=== PATIENT | male | born 1975 | race Caucasian/White ===

== ENCOUNTER 2017-11-16 01:56 | Inpatient (IN) | payer OTHER ==
[~2017-11-16] VITALS: Ht 203.2 cm; Wt 145.6 kg
[~2017-11-16 01:56] MED LIST: ALTACE10 M2 PO; CALCIUM 500 +1 EAC5 PO; FLOMAX0.4 M1 PO; METOPROLOL TART25 M1 PO; PROTONIX40 M3 PO
--- NOTE | 2017-11-16 14:50 | Operative Report ---
Operative/Inv Procedure Report Surgery Date: 11/16/17 Name of Procedure: Total thyroidectomy with Nims monitor Pre-Operative Diagnosis: Papillary carcinoma of the thyroid, right lobe Post-Operative Diagnosis: Same Estimated Blood Loss: less than 50ml Surgeon/Director [employer]: Loree Amador MD Student Anesthesia: general endotracheal tube (w/ NIMS monitor) Monitors: NIMS monitor Drains: JOSE 2 Specimens: 1. Total Thyroid , stitch superior pole, right lobe 2. Gregg ligament, right 3. Gregg ligament, left Microbiology: none Complications: none Condition: Stable on leaving the OR Operative Indication: Right thyroid nodule with US FNA positive for papillary carcinoma of the thyroid Operative/Procedure Note Note: The patient was brought to the operating room. Patient was placed on the operating room table in supine position. At first timeout was performed including patient's identification and the surgical procedure to be performed. Then general orotracheal anesthesia was induced. NIMS tube was inserted with direct visualization with the glida scope. Electrodes were placed directly over the vocal cords. NIMS tube was secured in place with tape. The grounding electrodes were then inserted into the sternum area and all electrodes were connected to the NIMS monitor. NIMS monitor was set on thyroidectomy mode. Gentle top of the patient's lower neck in para laryngeal and tracheal region yielded a nerve action potential which was visualized on the monitor. Action potential visualized on both sides which confirmed proper positioning of the NIMS tube. Neck was slightly hyperextended. The proposed incision was previously marked in a short-term surgery with patient sitting upright. Surgical table was left in place with head toward anesthesia. Neck was prepped and draped in the routine manner and surgery was performed. A horizontal incision was placed in a skin crease manner over the lower neck as previously marked. The incision was then crosshatched for skin approximation at the end of the surgery. The incision was carried with a 15 blade through the skin and subcutaneous tissue. Platysma was identified and transected next. The superior skin flap was then elevated in subplatysmal manner. Then the inferior skin flap was elevated in subplatysmal manner. Both skin flaps were then retracted by application stay sutures with 2-0 silk. Care was taken to preserve the subplatysmal venous plexus which was quite extensive. Strap muscles were identified in the midline and . Sternal notch, trachea, cricoid ring and larynx were palpated. Dissection was carried in the midline over upper trachea until the thyroid isthmus was identified. Strap muscles on the right were then retracted laterally and attention was paid to the inferior thyroid lobe. All venous and arterial supply was then carefully dissected. It was bipolared, with gem bipolar forceps, as well as clamped, and tied. The inferior parathyroid gland was not clearly visualized. However, the dissection was carried directly on the thyroid capsule which preserved the inferior parathyroid gland. Next, blunt dissection was used to dissect overlying soft tissue over the anterior surface of the gland. The gland was quite large and had significant venous plexus all over. Thyroid nodules palpable within the right lobe were pole. Inferior lateral dissection was carried next. Venous supply was dissected away from the gland and the clamped cut and tied. The superior parathyroid gland was identified on the undersurface of the gland. Parathyroid gland was gently elevated and from the thyroid tissue and left intact. Superiorly, dissection was carried from the thyroid isthmus over the anterior superior surface of the gland. The vascular supply was gently dissected and bipolared with gem forceps . Superior vascular pedicle including artery and vein were identified. They were clamped cut and tied. The gland was then gently rotated out of its bed. The lobe was then rotated out of the neck and further dissection was carried on the undersurface of the gland. Recurrent laryngeal nerve was never fully identified. Attempt at stimulating it with Nims probe was also not successful. Gregg ligament was bluntly dissected and thyroid was freed from its soft attachments to the trachea. At this point the isthmus was dissected and then freed from the trachea. Next left thyroidectomy was carried. Strap muscles on the left were then retracted laterally and attention was paid to the inferior thyroid lobe. All venous and arterial supply was then carefully dissected. It was bipolared, with gem bipolar forceps, as well as clamped, and tied. The inferior parathyroid gland was not clearly visualized. However, the dissection was carried directly on the thyroid capsule which preserved the inferior parathyroid gland. Next, blunt dissection was used to dissect overlying soft tissue over the anterior surface of the gland. The gland was quite large and had significant venous plexus all over. Thyroid nodules palpable within the right lobe were pole. Inferior lateral dissection was carried next. Venous supply was dissected away from the gland and the clamped cut and tied. The superior parathyroid gland was identified on the undersurface of the gland. Parathyroid gland was gently elevated and from the thyroid tissue and left intact. Superiorly, dissection was carried from the thyroid isthmus over the anterior superior surface of the gland. The vascular supply was gently dissected and bipolared with gem forceps . Superior vascular pedicle including artery and vein were identified. They were clamped cut and tied. The gland was then gently rotated out of its bed. The lobe was then rotated out of the neck and further dissection was carried on the undersurface of the gland. Recurrent laryngeal nerve was never fully identified. Attempt at stimulating it with Nims probe was also not successful. Gregg ligament was bluntly dissected and thyroid was freed from its soft attachments to the trachea. At this point the thyroid was completely freed from its surrounding tissue and tracheal and removed. Additional residual thyroid tissue in the region of Gregg ligament was teased out of with a clamp and sent to pathology separately. Once the thyroid gland was fully removed inspection was carried taking central neck. There was no evidence of adenopathy on both sides, therefore central neck dissection was not carried. Surgical bed was copiously irrigated. Surgeons changed gloves and applied fresh towels around the wound. Additional irrigation was then carried. The wound was carefully inspected for bleeders. There was small amount of bleeding in the region of recurrent laryngeal nerve. Pressure application with surgical sponges was carried for a period of 5 minutes with resultant resolution of the bleeding. Valsalva was applied. There was no air leak and no additional bleeding. Helotene powder was placed into the thyroid bed for hemostasis. Two #10 Fijian suction drains were inserted into the wound for drainage each exiting on each end of the wound. They were stitched 2-0 silk. Closure was then carried at first strap muscles with 4-0 Vicryl simple sutures. Then platysma with 4-0 Vicryl inverting sutures. Then skin was approximated with subcuticular horizontal running stitch with 5-0 Monocryl. Dermabond was applied to the incision followed by Steri-Strips. Pressure dressing was placed with fluffs and wraparound four-inch Randi gauze. Patient was then reawakened, recurrent laryngeal nerve was monitored during extubation. There was normal action potential on both sides. Patient was then extubated and taken to the recovery room in good condition. There were no complications. Estimated blood loss was 30 mL. Findings: 2 cm thyroid nodule within the right lower lobe completely encased by surrounding tissue Discharge Disposition: PACU
[2017-11-16] MEDS ORDERED: CYTOMEL25 MC1 PO (15:00)
--- NOTE | 2017-11-16 15:00 | Admission Core Measures ---
Acute Coronary Syndrome (CM) ACS Core Measures Acute Coronary Syndrome Diagnosis No Congestive Heart Failure (NEW) CHF Core Measures Congestive Heart Failure Diagnosis No Cerebrovascular Accident CVA Core Measures CVA/TIA Diagnosis No Venous Thromboembolism VTE Core Flor (View Protocol) VTE Risk Factors Surgery No Mechanical VTE Prophylaxis d/t N/A MechProphylax Ordered No VTE Pharm Prophylaxis d/t NA PharmProphylax ordered Problem List As ranked by this Provider includes Assessment & Plan 1. S/P total thyroidectomy HOME MEDS Home Med List Calcium Carbonate/Vitamin D3 (Calcium 500 + D Tablet) (Unknown Strength) TABLET 1 TAB PO DAILY SUPPLEMENT (Reported) Metoprolol Tartrate 25 MG TABLET 1 TAB PO BID HEART/BP (Reported) Pantoprazole Sodium (Protonix) 40 MG TABLET.DR 1 TAB PO DAILY AC GI (Reported ) Ramipril (Altace) 10 MG CAPSULE 1 CAP PO QAM BP (Reported) Tamsulosin HCl (Flomax) 0.4 MG CAP.ER.24H 1 CAP PO QHS (Reported)
--- NOTE | 2017-11-16 15:02 | Patient Discharge Instructions ---
Discharge Instructions General Discharge Information You were seen/treated for: Thyroid cancer You had these procedures: total thyroidectomy Watch for these problems: Temp>101, increased redness or drainage of wounds Other wound care: Keep incision clean and dry. No bathing or soaking. May shower. Diet Continue normal diet: Yes Activity Activity Self Limited: Yes Acute Coronary Syndrome Inclusion Criteria At DC or during hospital stay patient has or had the following: Discharge Core Measures Meds if any: Prescribed or Continued at Discharge Meds if any: NOT Prescribed or Continued at Discharge Congestive Heart Failure Inclusion Criteria At DC or during hospital stay patient has or had the following: Discharge Core Measures Meds if any: Prescribed or Continued at Discharge Meds if any: NOT Prescribed or Continued at Discharge Cerebrovascular accident Inclusion Criteria At DC or during hospital stay patient has or had the following: CVA/TIA Diagnosis No Discharge Core Measures Meds if any: Prescribed or Continued at Discharge Meds if any: NOT Prescribed or Continued at Discharge Venous thromboembolism Discharge Core Measures - Per Current guidelines, there needs to be overlap - treatment for the first 5 days of Warfarin therapy. - If discharged on Warfarin prior to 5 days of - overlap therapy, the patient will need to be - assessed for post discharge needs including - *Post discharge parental anticoagulation - *Warfarin and/or parental anticoagulation education - *Follow up date to check INR post discharge Meds if any: Prescribed or Continued at Discharge Note: Overlap Therapy is Warfarin and Anticoagulant Meds if any: NOT Prescribed or Continued at Discharge
--- NOTE | 2017-11-16 15:06 | Surg Short-stay <48hrs Dis Sum ---
Visit Information Visit Dates Admission Date: 11/16/17 Discharge Date: 11/17/17 Surgical Short Stay DC Summary Admission Diagnosis: Thyroid cancer Final Diagnosis: same, s/p total thyroidectomy Procedure(s): Total thyroidectomy - see operative report Summary/Significant Findings: Pt underwent a total thyroidectomy by Dr Amador and was brought to the recovery room in stable condition. He was brought to the ICU for overnight monitoring post op. He was able to tolerate liquids immediately post op and advanced to regular food. His voice was strong post op. He had no difficulty breathing. He was cleared for discharge. Follow up instructions given. Condition at Discharge: good Discharge Disposition: home or self care Discharge instructions provided to patient/family: Yes Post discharge follow-up plan: Dr Amador within two weeks
[2017-11-16] MEDS ORDERED: OS-CAL 500+D31 EAC1 PO (15:09)
[2017-11-16 16:00] VITALS: BP 130/70
--- NOTE | 2017-11-16 17:29 | PN- Ear, Nose & Throat ---
Subjective Subjective: Post op check Awake, alert No specific complaints Tolerating clear liquids without any difficulty swallowing No difficulty breathing Denies any palpitation/chest pain Pain is tolerable - requesting IV tylenol Objective Vital Signs and I&Os Vital Signs Date Time Temp Pulse Resp B/P B/P Pulse O2 O2 Flow FiO2 Mean Ox Delivery Rate 11/16 1701 96 Nasal 2.0L Cannula RR 16 Sat 98% 2LNC BP 136/64 HR 86 - frequent PVC's on the monitor Physical Exam: JOSE drains - scant serosang in both General: alert and oriented times three ENT: no facial droop, no slurring, tongue protrudes in midline, strength equal and symmetrical, no hoarseness Chest: clear anteriorly bilaterally, regular rate - frequent skipped beat - no murmurs/rubs Abd: soft, good bs Ext: warm, trace edema BUE, no calf tenderness, ALPS in place Wd: dressing clean and dry Current Medications: Current Medications Sig/Bakari Start time Last Medication Dose Route Stop Time Status Admin Acetaminophen 1,000 MG Q6H 11/16 1730 UNVr N/A 1 UNIT IV 11/17 1144 Calcium/Vitamin D 500 MG BID 11/16 2100 CAN PO Calcium/Vitamin D 500 MG BID 11/16 2100 AC PO Cefazolin Sodium 2,000 MG ONCE 11/16 0000 NR IV 11/16 2359 Fentanyl Citrate 100 MCG .STK-MED ONE 11/16 916 DC IM 11/16 917 Fentanyl Citrate 100 MCG .STK-MED ONE 11/17 835 DC IM 11/16 08 Fentanyl Citrate 100 MCG .STK-MED ONE 11/16 06 DC IM 11/16 0654 Hydromorphone HCl 2 MG .STK-MED ONE 11/16 0835 DC IM 11/16 0836 Lisinopril 20 MG DAILY 11/17 09 AC PO Metoprolol Tartrate 25 MG BID 11/16 2099 AC PO Midazolam HCl 2 MG .STK-MED ONE 11/16 0654 DC IM 11/16 0655 Omeprazole 40 MG DAILY AC 11/17 07 AC PO Remifentanil 3 MG .STK-MED ONE 11/16 09 DC IV 11/16 0918 Remifentanil 2 MG .STK-MED ONE 11/16 0653 DC IV 11/16 0654 Tamsulosin HCl 0.4 MG AT BEDTIME 08/02 2100 AC PO Results Last 48 Hours of Labs: Laboratory Tests 11/16 1505 Chemistry Sodium (137 - 145 mmol/L) 137 Potassium (3.5 - 5.1 mmol/L) 5.0 Chloride (98 - 107 mmol/L) 104 Carbon Dioxide (22 - 30 mmol/L) 24 Anion Gap (5 - 16) 9 BUN (9 - 20 mg/dL) 19 Creatinine (0.7 - 1.2 mg/dL) 1.0 Estimated GFR (>60 ml/min) > 60 BUN/Creatinine Ratio (7 - 25 %) 19.0 Calcium (8.4 - 10.2 mg/dL) 9.4 Magnesium (1.6 - 2.3 mg/dL) 1.8 Recent Imaging Studies: EKG post op - frequent PVC's, no evidence of [place] Assessment/Plan Assessment/Plan 42yo male s/p total thyroidectomy for thyroid cancer tolerating liquids - advance diet to regular pain management - IV tylenol, narcotics for breakthrough calcium/vitamin D bid cytomel daily beginning tomorrow - pt has script already at home Post op PVC's BEP/mag/calcium/CBC all wnl EKG without signs of [place] discussed with patient - this is a known, chronic issue and he has been worked up by Dr Morrissey of cardiology including cardiac cath. Asymptomatic. Dr Morrissey aware of pts surgery, left message with Dr Amador follow up labs in am Core Measures Venous Thromboembolism VTE Risk Factors Surgery No Mechanical VTE Prophylaxis d/t N/A MechProphylax Ordered No VTE Pharm Prophylaxis d/t NA PharmProphylax ordered
[2017-11-16 20:00] VITALS: BP 143/80
[2017-11-17] VITALS: BP 120/80
[2017-11-17 04:00] VITALS: BP 128/84
--- NOTE | 2017-11-17 05:56 | PN- General Surgery ---
Subjective Subjective: Patient awake -little sleep last night but feels well uneventful night hungry this am Review of Systems Constitutional: Denies: chills, fever, weakness. EENTM: Denies: throat pain. Cardiovascular: Reports: palpitations. Denies: edema. Respiratory: Denies: cough, short of breath. Gastrointestinal: Denies: abdominal pain, nausea, vomiting. Objective Vital Signs and I&Os Vital Signs Date Time Temp Pulse Resp B/P B/P Pulse O2 O2 Flow FiO2 Mean Ox Delivery Rate 11/17 97.4 68 20 120/80 98 Nasal 3.0L Cannula 11/17 98 Nasal 3.0L Cannula 11/16 2121 66 20 138/72 11/16 2121 62 20 138/72 11/17 1999 97 Nasal 2.0L Cannula 11/17 1999 96.9 55 18 143/80 97 Nasal 2.0L Cannula 11/16 1904 4.0 11/16 1701 96 Nasal 2.0L Cannula 11/16 1600 98.0 80 20 130/70 98 Nasal 2.0L Cannula Intake & Output 11/17 0811/17 0000 11/16 1600 11/16 0800 11/16 0000 11/15 1600 Intake Total 877 Output Total 960 Balance -83 Intake, IV 377 Intake, Oral 500 Output, 10 Drainage Output, Urine 950 Patient 321 lb Weight Physical Exam: VSS afebrile drain 1 with fluid that escaped from skin edge -nothing in drain drain 2 10cc serosang neck dressings with scant drainage chest- CTA symmetric Heart with - Reg rate with frequent stable PVC- assymtomatic abd -soft nontender bilateral lower extremities ssoft Physical Exam General Appearance: well developed/nourished, no apparent distress, alert, awake Current Medications: Current Medications Sig/Bakari Start time Last Medication Dose Route Stop Time Status Admin Acetaminophen 650 MG Q4P PRN 11/16 1815 AC PO Acetaminophen 1,000 MG Q6H 11/16 1730 AC 11/17 N/A 1 UNIT IV 11/17 1144 0538 Calcium/Vitamin D 500 MG BID 11/16 2100 CAN PO Calcium/Vitamin D 500 MG BID 11/16 2100 AC 11/16 PO 2122 Cefazolin Sodium 2 GM Q8H 11/16 2000 DC 11/17 N/A 1 UNIT IV 11/17 0429 0407 Cefazolin Sodium 2,000 MG ONCE 11/16 0000 DC IV 11/16 2359 Fentanyl Citrate 100 MCG .STK-MED ONE 11/16 0917 DC IM 11/16 0918 Fentanyl Citrate 100 MCG .STK-MED ONE 11/16 0836 DC IM 11/16 0837 Fentanyl Citrate 100 MCG .STK-MED ONE 11/16 0653 DC IM 11/16 0654 Heparin Sodium 5,000 UNIT Q8 11/16 2200 AC 11/16 (Porcine) SC 2136 Hydromorphone HCl 2 MG .STK-MED ONE 11/16 0835 DC IM 11/16 0836 Liothyronine Sodium 25 MCG DAILY 11/17 09 CAN PO Liothyronine Sodium 25 MCG DAILY 11/17 09 AC PO Lisinopril 20 MG DAILY 11/17 09 AC PO Metoprolol Tartrate 25 MG BID 11/16 2100 AC 11/16 PO 212 Midazolam HCl 2 MG .STK-MED ONE 11/16 0654 DC IM 11/16 0655 Morphine Sulfate 2 MG Q3P PRN 11/16 1815 AC IV Omeprazole 40 MG DAILY AC 11/17 0700 AC PO Ondansetron HCl 4 MG Q6P PRN 11/16 1815 AC IV Oxycodone/ 1 TAB Q4P PRN 11/16 1815 AC Acetaminophen PO Oxycodone/ 2 TAB Q4P PRN 11/16 1815 AC Acetaminophen PO Remifentanil 5 MG .STK-MED ONE 11/16 1051 DC IV 11/16 1052 Remifentanil 3 MG .STK-MED ONE 11/16 0917 DC IV 11/16 0918 Remifentanil 2 MG .STK-MED ONE 11/16 0653 DC IV 11/16 0654 Sodium Chloride 1,000 ML Q13H 11/16 1815 AC 11/16 IV 1905 Tamsulosin HCl 0.4 MG AT BEDTIME 11/16 2100 AC 11/16 PO 2122 Results Last 48 Hours of Labs: Laboratory Tests 11/16 1505 Chemistry Sodium (137 - 145 mmol/L) 137 Potassium (3.5 - 5.1 mmol/L) 5.0 Chloride (98 - 107 mmol/L) 104 Carbon Dioxide (22 - 30 mmol/L) 24 Anion Gap (5 - 16) 9 BUN (9 - 20 mg/dL) 19 Creatinine (0.7 - 1.2 mg/dL) 1.0 Estimated GFR (>60 ml/min) > 60 BUN/Creatinine Ratio (7 - 25 %) 19.0 Calcium (8.4 - 10.2 mg/dL) 9.4 Magnesium (1.6 - 2.3 mg/dL) 1.8 Assessment/Plan Assessment/Plan 42yo male POD 1 s/p total thyroidectomy for thyroid cancer tolerating liquids - advance diet to regular pain management - IV tylenol, narcotics for breakthrough CA level 9.4 on supplementation cytomel daily beginning tomorrow - pt has script already at home 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 Asymptomatic. Dr Morrissey aware of pts surgery, discussed with Dr. Amador Core Measures Venous Thromboembolism VTE Risk Factors Surgery No Mechanical VTE Prophylaxis d/t N/A MechProphylax Ordered No VTE Pharm Prophylaxis d/t NA PharmProphylax ordered
[2017-11-17 08:00] VITALS: BP 124/76
[2017-11-17 10:16] VITALS: BP 140/79
--- NOTE | 2017-11-17 12:26 | Cons- Cardiology ---
General Information and HPI Consulting Request Date of Consult: 11/16/17 Requested By: Loree Amador MD History of Present Illness: Mehul is a 42 year old male with history of testicular cancer s/p left orchiectomy many years ago. He also had lymphoma. Recently, he was also found to have thyroid cancer and he underwent surgical resection of his thyroid tumor on this admission. Post procedure the patient is noted to have multiple asymptomatic unifocal PVC's. He otherwise feels well without chest pain, pressure, tightness, shortness of breath or lightheadedness. To review his prior history, over the past six months this patient has noted a marked decrease in his exercise tolerance due to exertional shortness of breath. He can do very little without becoming winded. In addition, he has orthopnea. Over the same period of time Mehul has noted a chest discomfort that was atypical for cardiac pain. It was a sharp and sometimes severe discomfort of the left chest that can last for minutes at a time. There was no exertional compenent to this pain and it was non-radiating. There was no association with nausea, vomiting, diaphoresis, breathing or eating. He denied lightheadedness but did have occasional palpitations. Finally, it should be noted that this patient reported a severe enlargement of his right testicle along with painless hematuria at the time of his last office visit. It is now thought to be related to epididimitis however this is to be reviewed by his cancer doctors. A new thyroid nodule was also found which appeared to be a papillary thyroid carcinoma which he was now admitted for. A cardiac catheterization showed patent coronaries but confirmed a mildly decreased EF. Workup for the above included a stress test showing inferoseptal ischemia with decreased EF of 41% but an exercise tolerance of over 10 minutes. Our echocardiogram showed a decreased EF of 45-50% with moderate left atrial enlargement and trace MR. This patient works for [employer] in [employer] which is where he has undergone a workup for the above. It has included pulmonary function tests that are in the normal range and a normal stress echo. There is impaired LV relaxation on his echo but no evidence of ischemia. Allergies/Medications Allergies: Coded Allergies: etoposide (Severe, ANAPHYLAXIS 11/15/17) PER PRE-OP ORDER SHEET FROM [facility]. - 11/15/17 naproxen (Severe, ANAPHYLAXIS 11/15/17) PER PRE-OP ORDER SHEET FROM [facility]. -CG 11/15/17 NSAIDS (Non-Steroidal Anti-Inflamma (PER PT WAS TOLD NOT TO TAKE BY 11/15/17) Home Med List: Calcium Carbonate/Vitamin D3 (Os-Tam 500+D3 Caplet) 500 MG-200 TABLET 1 TAB PO BID supplement (Reported) Liothyronine Sodium (Cytomel) 25 MCG TABLET 1 TAB PO DAILY HYPOTHYROIDISM Metoprolol Tartrate 25 MG TABLET 1 TAB PO BID HEART/BP (Reported) Pantoprazole Sodium (Protonix) 40 MG TABLET.DR 1 TAB PO DAILY AC GI (Reported ) Ramipril (Altace) 10 MG CAPSULE 1 CAP PO QAM BP (Reported) Tamsulosin HCl (Flomax) 0.4 MG CAP.ER.24H 1 CAP PO QHS (Reported) Review of Systems Review of Systems: A review of systems is unremarkable. 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 Home Smoking Status: Never Smoked Exam & Diagnostic Data Vital Signs and I&O Vital Signs Date Time Temp Pulse Resp B/P B/P Pulse O2 O2 Flow FiO2 Mean Ox Delivery Rate 11/17 1016 84 140/79 11/17 1015 78 140/79 / 0800 Room Air 11/17 0800 97.7 64 20 124/76 99 Room Air 11/17 0400 96.7 48 18 128/84 96 Nasal 3.0L Cannula 11/17 0400 96 Nasal 3.0L Cannula 11/17 0000 97.4 68 20 120/80 98 Nasal 3.0L Cannula 11/17 0000 98 Nasal 3.0L Cannula 11/162 66 20 138/72 11/16 2121 62 20 138/72 11/17 1999 97 Nasal 2.0L Cannula 11/17 1999 96.9 55 18 143/80 97 Nasal 2.0L Cannula 11/16 1904 4.0 11/16 1701 96 Nasal 2.0L Cannula 11/16 1600 98.0 80 20 130/70 98 Nasal 2.0L Cannula Intake & Output 11/17 0800 11/17 0000 11/16 1600 11/16 0800 11/16 0000 Intake Total 840 877 Output Total 855 960 Balance -15 Intake, IV 600 377 Intake, Oral 240 500 Output, 5 10 Drainage Output, Urine 850 950 Patient 321 lb Weight Physical Exam: General: WD/WN male in NAD; alert and oriented x 3 HEENT: NC/AT, PERRL, EOMI Heart: RRR w/o murmur, +ve ectopy Lungs: clear bilaterally Abdomen: soft, NT, +ve bowel sounds Extremities: no edema Assessment/Plan Assessment/Plan * This patient has shortness of breath with minimal exertion that may be related to uncontrolled hypertension but I am concerned about the possibility of malignancy. He now has evidence of a papillary thyroid carcinoma and his chest CT showed multiple small nodules that were characterized as granulomas verses malignancy. We will obtain pulmonary function tests as an outpatient. I think his exercise intolerance is multifactorial and due to a combination of mildly decreased EF, possibly related to prior chemotherapy, hypertension and possible lung disease. Nevertheless, his exercise tolerance is reasonable at ten minutes of exercise on a treadmill stress test. I do not see evidence of decompensated CHF at this time. * This patient had hypertension with multiple PVC's although his blood pressure appears better today. He does have impaired LV relaxation on his echocardiogram and may well lead to exercise intolerance and shortness of breath. In addition, his PVC's may be related to subendocardial ischemia from hypertensive heart disease. We added Metoprolol 25mg BID which has helped and he should also be on an ACEI to maintain a well controlled blood pressure. His PVC's are not new and in the setting of a near normal EF are unlikely to be a cause of sustained ventricular tachycardia. I think he is safe for discharge from a cardiac standpoint on the above medications. Consult Acknowledgment - Thank you for your consult request.
== END 2017-11-17 14:40 | DRG 627 ==
LOC: STS 01:56 → PACUH 10:09 → ENRESERV 15:28 → ENTRNSPT 16:15 → EDTRNSPTSTS 16:32 → CMPTRNSPT 16:47 → CRI 16:54
PROC: 4A11X4G Monitoring of Peripheral Nervous Electrical Activity, Intraoperative, External Approach (ICD-10-PCS; principal; 2017-11-16)
PROC: 0GTH0ZZ Resection of Right Thyroid Gland Lobe, Open Approach (ICD-10-PCS; principal; 2017-11-16)
DX: C73 Malignant neoplasm of thyroid gland (principal); I49.3 Ventricular premature depolarization; I10 Essential (primary) hypertension; I25.10 Atherosclerotic heart disease of native coronary artery without angina pectoris; Z85.47 Personal history of malignant neoplasm of testis; Z85.72 Personal history of non-Hodgkin lymphomas; Z88.8 Allergy status to other drugs, medicaments and biological substances; Z90.79 Acquired absence of other genital organ(s)
CPT/HCPCS: CCU; 36415; 82436; 93005; 93010; J0131; J0690; J1644; J2405; J3490

== ENCOUNTER 2017-12-28 02:02 | Observation (INO) | payer OTHER ==
[~2017-12-28] VITALS: Ht 203.2 cm; Wt 146.1 kg
[~2017-12-28 02:02] MED LIST changes: +CYTOMEL25 MC1 PO; +OS-CAL 500+D31 EAC1 PO
[2017-12-28] MEDS ORDERED: LEVOTHYROXINE137 MCG PO (06:36)
[2017-12-28] MEDS ORDERED: BREO ELLIPTA 21 EACH PO (06:36)
[2017-12-28] MEDS ORDERED: FLOMAX0.4 M1 PO (06:37)
[2017-12-28 12:50] VITALS: BP 122/80
--- NOTE | 2017-12-28 14:01 | PN- Student ---
Natasha kaba 12/28/17 1347: Subjective Subjective: Pt reports feeling well after surgery. He is in minimal pain at this time. He has ambulated and urinated without issue. He tolerated a clear liquid diet and reports being hungry. Has had no nausea or vomiting post-operatively. No CP, SOB , difficulty breathing, MACIAS, dizziness, numbness or tingling in his extremities. Objective Objective: Vitals: See EMR General: Middle aged man, sitting up in chair, pleasant, comfortable, NAD. Dressing clean, dry and intact over the neck with drain in place and small amount of bloody drainage noted. Cardio: S1 and S2. Regular rate and rhythm. No murmurs rubs or gallops. Pulm: Breath sounds auscultated. No wheezes, rhonchi or rales. Abdomen: Hyperactive bowel sounds. Soft, non-distended, non-tender to palpation. Extremities: ALPs in place on lower extremities. Calves are soft and non-tender. Gross motor and sensation intact and equal in bilateral upper and lower extremities. Assessment/Plan Assessment: 42 year old male POD #0 s/p excisional biopsy of a left cervical lymph node. PMH includes thyroid cancer s/p total thyroidectomy and BPH. Pt tolerated the procedure well and his post-operative pain is well controlled at this time. Plan: Continue antibiotics until drain is removed. Monitor drain output and remove when output is minimal. On clear liquid diet, will advance as tolerated. Continue IVF. Hep SubQ and ALPs for DVT ppx. Encourage ambulation. Encourage incentive spirometry use. Continue home medications. Discuss with Dr Amador and surgical PAs. Cortes Cage 12/28/17 8946: Resident Review Statement Resident Statement: amended to note Other Findings: agree w above pt comfortable, minimal pain. JOSE drain with minimal s/s output, holding self suction. dressing dci minimal neck swelling. tolerating regular diet. cont 23hr observation to monitior for neck swelling/obstructive symptoms and pain control. likely dc in am abx until drain out.
--- NOTE | 2017-12-28 15:19 | Admission Core Measures ---
Acute Coronary Syndrome (CM) ACS Core Measures Acute Coronary Syndrome Diagnosis No Congestive Heart Failure (NEW) CHF Core Measures Congestive Heart Failure Diagnosis No Cerebrovascular Accident CVA Core Measures CVA/TIA Diagnosis No Venous Thromboembolism VTE Core Flor (View Protocol) VTE Risk Factors Age>40 No Mechanical VTE Prophylaxis d/t N/A MechProphylax Ordered No VTE Pharm Prophylaxis d/t NA PharmProphylax ordered Problem List As ranked by this Provider includes Assessment & Plan 1. S/P dissection of cervical lymph nodes HOME MEDS Home Med List Calcium Carbonate/Vitamin D3 (Os-Tam 500+D3 Caplet) 500 MG-200 TABLET 1 TAB PO BID supplement (Reported) Fluticasone/Vilanterol (Breo Ellipta 200-25 Mcg INH) 200 MCG-25 MCG/DOSE BLST.W.DEV 1 PUFF PO DAILY SOB (Reported) Levothyroxine Sodium 137 MCG TABLET 1 TAB PO DAILY THYROID (Reported) Metoprolol Tartrate 25 MG TABLET 1 TAB PO BID HEART/BP (Reported) Pantoprazole Sodium (Protonix) 40 MG TABLET.DR 1 TAB PO DAILY AC GI (Reported ) Ramipril (Altace) 10 MG CAPSULE 1 CAP PO QAM BP (Reported) Tamsulosin HCl (Flomax) 0.4 MG CAP.ER.24H 1 CAP PO QHS (Reported) Tamsulosin HCl (Flomax) 0.4 MG CAP.ER.24H 1 CAP PO DAILY FREQUENT URINATION ( Reported)
--- NOTE | 2017-12-28 15:45 | Operative Report ---
Operative/Inv Procedure Report Surgery Date: 12/28/17 Name of Procedure: 1. Excisional biopsy deep neck lymph node, level II, left With Nims monitor 2. Direct laryngoscopy with biopsy base of tongue, left Pre-Operative Diagnosis: 1. Deep Cervical lymph node, level II, left 2. base of tongue lesion, left Post-Operative Diagnosis: Same Estimated Blood Loss: less than 50ml Surgeon/Pipeline Gang Supervisor: Loree Amador MD, PA Anesthesia: general endotracheal tube Monitors: NIMS monitor Drains: JOSE 1, left Specimens: 1. Deep cervical lymph node, level II, left 2. Base of tongue, left Microbiology: none Complications: none Condition: Stable on leaving the OR Operative Indication: Enlarged deep cervical lymph node, level II, left US FNA showed atypical lymphocytes Patient has a prior history of any lymphoma Recent PET scan showed increased SUV uptake at the base of tongue on the left Operative/Procedure Note Note: The patient was brought to the operating room and placed on the operating room table in supine position. At first timeout was carried, including patient's name, medical record number and planned surgical procedure. General orotracheal anesthesia was induced. Endotracheal tube secured in the right corner of the mouth. Operating room table was turned 90 away from anesthesia, toward the patient's left. Eyes were protected with tape and wet sponge. Patient's head was was sterilely dressed followed by a full body drape. Dental guard was inserted into the mouth and secured over upper teeth. Direct laryngoscopy was performed. Anterior commissure laryngoscope was used and direct laryngoscopy was carried. The laryngoscope was advanced into oropharynx, hypopharynx and larynx. Base of tongue appeared somewhat prominent base of tongue lymphoid hyperplasia, greater on the left. Vallecula was intact. Epiglottis both over the vallecular and laryngeal surfaces was intact. Vocal cords appeared to be clear . Anterior and posterior commissure with clear. Piriform sinuses both right and left were intact without evidence of lesions. Laryngoscope was then withdrawn. Hypopharyngoscope was used next. Hypopharyngoscope was introduced into the oral cavity and oropharynx and hypopharynx. Base of tongue was carefully examined. There is prominent lymphoid hyperplasia at the base of tongue, greater on the left. Cup forceps were used to take samples of the base of tongue tissue on the left. Biopsy specimen was submitted for pathology. Bleeding was controlled by application of cottonoid pledgets saturated with epinephrine followed by pressure application with the sponge. Lap sponge was then removed. There was no further bleeding. Hypopharyngeal endoscopy was completed. Hypopharyngoscope was removed and patient was positioned for neck surgery. Nims monitor was used to monitor the marginal mandibular nerve as well as SCM branch of spinal accessory nerve. The electrodes were inserted into the left lower lip and lower aspect of the SCM muscle. The electrodes were protected with OpSite and tape. Ground electrodes were placed over the sternum. All the electrodes were then connected to the NIMS monitor which was then set neck dissection mode, 2 leads. Neck was prepped and draped in the routine manner and surgery was performed. A horizontal incision was placed in a skin crease manner about 2 fingerbreadths below the mandible. The incision was crosshatched for the end of the surgery skin approximation. The incision was carried with a 15 blade through the skin and subcutaneous tissue. Platysma was identified and transected by using the clamp and cut technique to avoid injury to the marginal mandibular nerve. Skin was then elevated in subplatysmal manner at first superiorly, care was taken not to injure the marginal mandibular nerve. Then inferiorly including anterior neck to the midline. Marginal mandibular nerve was identified and preserved as it was coursing through the soft tissue below the platysma over the superior skin flap . Cutaneous branches traversing the SCM and going towards the cheek region were identified were identified and preserved. Finger palpation and examination revealed enlarged 2 cm node at level II anterior to the SCM and deep. Attention was then paid to the anterior medial border of the sternocleidomastoid muscle and dissection was carried anteriorly and deep to the sternocleidomastoid muscle to the level of internal jugular vein. The anterior dissection was carried to the posterior border of the submaxillary gland. Fibrofatty tissue between the SCM and the submaxillary gland was dissected until the lymph node was identified. The lymph node was carefully dissected away from the fibrofatty tissue. Tail of the parotid was identified and retracted superiorly. The lymph node was quite long and extending onto the base of skull all the way up to the digastric muscle. The vascular pedicle was clamped and tied. Additional small vessels were cauterized with bipolar. Both sharp and blunt dissection was carried until the entire lymph node was freed and removed. Additional palpation in the region did not reveal any adenopathy. Anterior facial vein was identified. It was preserved. Marginal mandibular nerve was preserved. The internal jugular vein was intact. The removed lymph node was submitted to pathology. Surgery was completed. Wound was copiously irrigated. Additional bleeding sites cauterized with bipolar. Helotene powder was placed into the neck dissection bed. A #10 [place] suction drain was inserted into the wound for drainage coming out through the lateral end of the incision . Drains was stitched in place with 2-0 silk. Closure was then carried at first platysma with 4-0 Vicryl inverting sutures followed by skin closure with 5-0 Monocryl horizontal subcuticular running stitch. Dermabond was applied to the incision followed by Steri-Strips. Drain tubing was connected to the self suction carnisters. Pressure dressing was placed with fluffs and wraparound four-inch gauze. Patient was then reawakened, extubated and taken to the recovery room in good condition. There were no complications. Estimated blood loss was 30 mL.
--- NOTE | 2017-12-28 15:48 | Operative Report ---
Operative/Inv Procedure Report Name of Procedure: This is in error, please ignore the dictation
--- NOTE | 2017-12-28 15:55 | Patient Discharge Instructions ---
Discharge Instructions General Discharge Information You were seen/treated for: 1. Deep Cervical lymph node, left 2. Base of tongue lesion, left You had these procedures: 1. Excisional biopsy deep neck lymph node, leftith Nims monitor 2. Direct laryngoscopy with biopsy base of tongue, left Watch for these problems: Increased pain, swelling, fever > 101.3, nausea, vomiting, redness, swelling or drainage from incision Call Surgeon to remove: Stitches Do not soak the wound: Yes No bath, but you may shower: Yes Other wound care: Keep incisions clean and dry Change dressing daily as needed Diet Continue normal diet: Yes Activity Full Activity/No Limits: No Activity Self Limited: Yes Acute Coronary Syndrome Inclusion Criteria At DC or during hospital stay patient has or had the following: ACS DIAGNOSIS No Discharge Core Measures Meds if any: Prescribed or Continued at Discharge Meds if any: NOT Prescribed or Continued at Discharge Congestive Heart Failure Inclusion Criteria At DC or during hospital stay patient has or had the following: CHF DIAGNOSIS No Discharge Core Measures Meds if any: Prescribed or Continued at Discharge Meds if any: NOT Prescribed or Continued at Discharge Cerebrovascular accident Inclusion Criteria At DC or during hospital stay patient has or had the following: CVA/TIA Diagnosis No Discharge Core Measures Meds if any: Prescribed or Continued at Discharge Meds if any: NOT Prescribed or Continued at Discharge Venous thromboembolism Inclusion Criteria VTE Diagnosis No VTE Type NONE VTE Confirmed by (Test) NONE Discharge Core Measures - Per Current guidelines, there needs to be overlap - treatment for the first 5 days of Warfarin therapy. - If discharged on Warfarin prior to 5 days of - overlap therapy, the patient will need to be - assessed for post discharge needs including - *Post discharge parental anticoagulation - *Warfarin and/or parental anticoagulation education - *Follow up date to check INR post discharge At least 5 days overlap therapy as Inpatient No Meds if any: Prescribed or Continued at Discharge Note: Overlap Therapy is Warfarin and Anticoagulant Meds if any: NOT Prescribed or Continued at Discharge
--- NOTE | 2017-12-28 15:59 | Surg Short-stay <48hrs Dis Sum ---
Visit Information Visit Dates Admission Date: 12/28/17 Discharge Date: 12/29/17 Surgical Short Stay DC Summary Admission Diagnosis: 1. Deep Cervical lymph node, left 2. Base of tongue lesion, left Final Diagnosis: MARBIN s/p excisional biopsy deep neck lymph node, leftith Nims monitor, direct laryngoscopy with biopsy base of tongue, left Procedure(s): 1. Excisional biopsy deep neck lymph node, leftith Nims monitor 2. Direct laryngoscopy with biopsy base of tongue, left Summary/Significant Findings: Patient presented for an elective excisional biopsy left deep neck lymph node, left with Nims monitor and left direct laryngoscopy with biopsy base of tongue due to deep left cervical lymph node and base of tongue lesion, left. He tolerated the procedure well. Diet was advanced and tolerated. On the day of discharge, he was voiding spontaneously, ambulating without difficulty and pain was controlled with oral analgesics. Condition at Discharge: Stable Discharge Disposition: home or self care Discharge instructions provided to patient/family: Yes Post discharge follow-up plan: 1-[address] Amador
[2017-12-28 17:08] VITALS: BP 140/80
[2017-12-28 22:47] VITALS: BP 120/84
[2017-12-29 06:21] VITALS: BP 126/82
--- NOTE | 2017-12-29 06:46 | PN- Student ---
sendyNatasha 12/29/17 0634: Subjective Subjective: Patient reports feeling well overnight and this morning. Denies having any pain. Tolerated a regular diet last night without any difficulty swallowing, nausea or vomiting. Ambulated and used the bathroom without difficulty. Denies any CP, SOB , difficulty breathing, headache or dizziness. Objective Objective: Vitals: Temp: 97.9 Pulse 58 bpm Resp rate: 20 BP: 126/82 o2: 94% on room air General: Middle aged man, lying in bed, comfortable, conversive, NAD. HEENT: Dressing clean dry and intact around the neck, minimal swelling noted, drain on self suction with minimal output. Cardio: S1 and S2. Regular rate and rhythm. No murmurs, rubs or gallops. Pulm: Breath sounds auscultated with no wheezes, rhonchi or rales. Abdomen: Soft, non-tender, non-distended. Normoactive bowel sounds. Extremities: Calves soft and non-tender bilaterally. Gross motor and sensory intact and equal bilaterally. Assessment/Plan Assessment: Pt is a 42 year old male POD#1 s/p left cervical lymph node biopsy with drain placement. PMH includes thyroid cancer s/p total thyroidectomy and BPH. Pt tolerated the procedure well, post-operative pain is well controlled, and reddy drain has minimal output. Plan: Continue w pain control prn. Continue to watch for excess neck swelling. Regular diet. Consider removing drain. D/c antibiotics when drain is removed. On home medications. Heparin SubQ and ALPs for DVT ppx. Continue with discharge planning, likely home today. Encourage ambulation and incentive spirometry use. Discuss with Dr Amador. Kacey Fitzpatrick 12/29/17 0857: Assessment/Plan Assessment: Agree with student assessment. Patient has been in observation status. Patient complaining about bulkiness of dressing interfering with ability to sleep. No complaints of difficulty breathing, speaking or swallowing. Tolerating diet. Pain controlled without the use of pain medication. Discussed with luz marina Paris to dc drain and place new dressing utilizing fluffs and edwina. Patient to be discharged to home today, patient does not want any narcotic pain medication upon discharge.
[2017-12-29 07:48] LABS: ABSOLUTE BASOPHIL COUNT 0 /CUMM (0.0-0.2); ABSOLUTE EOSINOPHIL COUNT 0 /CUMM (0.0-0.7); ABSOLUTE GRANULOCYTE CT 8.3 /CUMM (1.4-6.5); ABSOLUTE LYMPH COUNT 1.4 /CUMM (1.2-3.4); ABSOLUTE MONOCYTE COUNT 0.4 /CUMM (0.10-0.60); BASOPHIL % 0.4 % (0.0-2.0); EOSINOPHIL % 0.4 % (0-5); GRANULOCYTE % 81.2 % (42.2-75.2); HEMATOCRIT 40.1 % (42-52); MEAN CORPUSCULAR HGB 29.9 PG (27.0-31.0); MEAN CORPUSCULAR HGB CONC 35.1 G/DL (33.0-37.0); MEAN CORPUSCULAR VOLUME 85.2 FL (80.0-94.0); MEAN PLATELET VOLUME 9.4 FL (7.4-10.4); PLATELET COUNT 220 /CUMM (130-400); RBC DISTRIBUTION WIDTH 13.9 % (11.5-14.5); WHITE BLOOD CELL COUNT 10.2 /CUMM (4.8-10.8)
[2017-12-29 07:53] VITALS: BP 126/82
== END 2017-12-29 12:01 ==
LOC: STS 02:02 → EDSTATUS 07:00 → PACUH 10:03 → ENRESERV 12:00 → ENTRNSPT 12:34 → EDTRNSPT 12:42 → EDTRNSPTSTS 12:42 → 2NB 12:47 → CMPTRNSPT 12:54 → ENPENDDIS 12-29 09:21 → 2NB 12-29 12:01
PROVIDERS: Physician Assistant Surgical
DX: R59.0 Localized enlarged lymph nodes (principal); K14.9 Disease of tongue, unspecified; I10 Essential (primary) hypertension; I25.10 Atherosclerotic heart disease of native coronary artery without angina pectoris; K21.9 Gastro-esophageal reflux disease without esophagitis; Z85.850 Personal history of malignant neoplasm of thyroid; Z85.47 Personal history of malignant neoplasm of testis; Z85.72 Personal history of non-Hodgkin lymphomas
CPT/HCPCS: 6040; 36592; 96372; 96374; 96375; 96376; G0378; J0171; J0690; J1644; J2250; J2405; J7120